=== PATIENT | male | born 2000 | race Caucasian/White ===

== ENCOUNTER 2022-09-23 19:15 | Emergency (ER) | payer SELFPAY ==
[2022-09-23 19:21] VITALS: BP 137/80; PULSE 107; RESP 18; TEMP 98.9; BMI 26.1
[2022-09-23] MEDS ORDERED: SULFAMETHOXAZOLE/TRIMETHOPRIM 800MG/160MG D.S. TABLET PO ONE (20:30)
[2022-09-23] MEDS ORDERED: SULFAMETHOXAZOLE/TRIMETHOPRIM 800MG/160MG D.S. TABLET ONE (20:37)
== END 2022-09-23 21:35 | disposition home or self-care (01) ==
LOC: JERFT 19:15
PROC: 0H91XZZ Drainage of Face Skin, External Approach (ICD-10-PCS; principal; 2022-09-23)
DX: K13.0 Diseases of lips (principal)
CPT/HCPCS: 87070; 87186; 87205; 99283-25